=== PATIENT | female | born 1980 | race Caucasian/White ===

== ENCOUNTER → 2019-11-26 14:55 | Outpatient (CLI) | payer OTHER, SELFPAY ==
--- NOTE | ~2019-11-26 | MM_ITS ---
EXAMINATION: MM screening [facility] BI w den HISTORY: Screening mammogram TECHNIQUE: Craniocaudal and mediolateral oblique 3-D tomosynthesis images were obtained and synthetic 2-D images were generated. CAD analysis was submitted and interpreted. COMPARISON: 11/16/2011 diagnostic left digital mammogram and left breast ultrasound 02/01/2012 diagnostic left digital mammogram BREAST PARENCHYMAL COMPOSITION: The breasts are heterogeneously dense, which may obscure small masses . FINDINGS: There is a biopsy marker in the upper outer quadrant of the left breast; biopsy was reporte dly benign. There is no evidence of suspicious mass, calcification, or architectural distortion to gupta ggest malignancy in either breast. There has been no suspicious interval change. IMPRESSION: 1. No mammographic evidence of malignancy. 2. Recommend routine screening mammography in one year. BI-RADS Category 1: Negative Reviewed, dictated and finalized at location A.
== END ==
PROVIDERS: Visit Provider Nurse Practitioner
DX: Z12.31 Encounter for screening mammogram for malignant neoplasm of breast (principal)
CPT/HCPCS: 77063; 77067

== ENCOUNTER → 2021-01-28 10:08 | Outpatient (CLI) | payer OTHER, SELFPAY ==
--- NOTE | ~2021-01-28 | MM_ITS ---
EXAMINATION: MM screening rin BI w den HISTORY: Screening mammogram TECHNIQUE: Craniocaudal and mediolateral oblique 3-D tomosynthesis images were obtained and synthetic 2-D images were generated. CAD analysis was submitted and interpreted. COMPARISON: No prior mammogram is available for comparison at this institution. BREAST PARENCHYMAL COMPOSITION: FINDINGS: There is no evidence of suspicious mass, calcification, or architectural distortion to sugg est malignancy in either breast. There has been no suspicious interval change. IMPRESSION: 1. No mammographic evidence of malignancy. 2. Recommend routine screening mammography in one year. BI-RADS Category 1: Negative Reviewed, dictated and finalized at location A.
== END ==
PROVIDERS: Visit Provider Nurse Practitioner
DX: Z12.31 Encounter for screening mammogram for malignant neoplasm of breast (principal)
CPT/HCPCS: 77063; 77067

== ENCOUNTER 2021-03-23 08:03 | Emergency (ER) | payer OTHER, SELFPAY ==
[2021-03-23 08:10] VITALS: PULSE 104; RESP 14; TEMP 37.1; O2SAT 98
--- NOTE | 2021-03-23 08:23 | ED.EYEPROB ---
HPI - Eye Problem General Chief complaint: Eye Problems Stated complaint: Eye Swelling Time Seen by Provider: 03/23/21 08:05 Source: patient Mode of arrival: ambulatory Limitations: no limitations History of Present Illness HPI Narrative: 40-year-old female presents to [facility] with complaints of swelling to her bilateral upper eyelids, no drainage and matting to her eyes since yesterday. Patient denies new make-up, new soaps or new lotion. Patient denies shortness of breath, wheezing, trouble swallowing difficulty breathing. Patient does not wear contacts or glasses. Onset (ago): day(s) (1) Onset description: sudden Mechanism: none Associated symptoms: none Related Data Home Medications Medication Instructions Recorded Confirmed norethindrone-ethin estradiol 1 tablet PO DAILY 03/23/21 03/23/21 [Nortrel (28)] Allergies Allergy/AdvReac Type Severity Reaction Status Date / Time No Known Allergies Allergy Unknown Unverified 03/23/21 08:19 Review of Systems Constitutional: Constitutional: Denies chills, Denies fatigue, Denies fever(s) and Denies weakness Eyes: Comments: Swelling to eyelids, mild drainage, matting ENT: Denies dysphagia, Denies dizziness, Denies epistaxis and Denies sore throat Respiratory: Respiratory: Denies chest congestion, Denies cough, Denies dyspnea and Denies wheezing Gastrointestinal: Gastrointestinal: Denies abdominal pain, Denies diarrhea, Denies nausea and Denies vomiting Integumentary/Breasts: Skin/Breast: Denies rash Endocrine: Endocrine: Denies fatigue [facility] Surgical History Surgical History (Updated 03/23/21 @ 08:27 by Martha Blackman APRN) Hx of removal of ovary Family History Family History Grandparent Carcinoma of colon Family history of lung cancer Social History Social History Smoking status: Never smoker Alcohol intake: never Comments At time of signature, I agree with nursing past medical, surgical, social and family history. There is no relevant family history pertinent to the presenting complaint. Exam Const: General: healthy appearing, no acute distress and alert Orientation/consciousness: patient oriented x3 Eyes: Conjunctivae: conjunctivae normal Pupils: Equal, round and reactive pupils present Direct Ophthalmoscopy: no photophobia Other: swelling noted to bilateral upper eyelids -- left is worse than right. No active drainage or tearing noted. Neck: Neck: normal visual inspection Resp: Effort & Inspection: normal respiratory effort Auscultation: clear to auscultation bilaterally Cardio: Rate: regular rate, not bradycardic and not tachycardic Rhythm: regular rhythm Skin: General skin exam: normal color Rashes: no rashes Wounds: no wounds Neuro: General: patient oriented x3 and moves all extremities Psych: Appearance: grossly normal Mental Status: mental status grossly normal Affect: normal affect Attitude: cooperative Course Vital Signs Vital signs: Vital Signs Temperature 37.1 C 03/23/21 08:10 Pulse Rate 104 H 03/23/21 08:10 Respiratory Rate 14 03/23/21 08:10 Pulse Oximetry 98 03/23/21 08:10 Temperature 37.1 C 03/23/21 08:10 Pulse Rate 104 H 03/23/21 08:10 Respiratory Rate 14 03/23/21 08:10 Blood Pressure 156/98 H 03/23/21 08:26 Pulse Oximetry 98 03/23/21 08:10 MDM - Eye Problem MDM Narrative Medical decision making narrative: Inform patient to follow-up with primary care provider and have blood pressure reevaluated. Patient reports her blood pressure does run high at times. Informed patient take prednisone as prescribed and use ointment as prescribed. Patient agrees to follow-up with primary care provider or eye doctor if symptoms not improved. Patient agrees to proceed to emergency room if symptoms worsen Differential Diagnosis Differential diagnosis: Likely conjunct
[2021-03-23 08:26] VITALS: BP 156/98
== END 2021-03-23 08:35 | disposition home or self-care (01) ==
PROVIDERS: Emergency Provider Nurse Practitioner Family; PCP Hospitalist
DX: H02.844 Edema of left upper eyelid (principal); H02.841 Edema of right upper eyelid; I10 Essential (primary) hypertension
CPT/HCPCS: 99213; G0463

== ENCOUNTER 2021-05-22 01:52 | Emergency (ER) | payer OTHER, SELFPAY ==
--- NOTE | ~2021-05-22 | XR_ITS ---
EXAMINATION: XR chest 2V DATE: 05/22/2021 02:27 INDICATION: Chest pain TECHNIQUE: PA and lateral views of the chest are obtained. COMPARISON: None available FINDINGS: The lungs are free of acute opacities. There is no pleural effusion or pneumothorax. The ca rdiomediastinal silhouette is normal. The visualized bones and soft tissues are unremarkable. IMPRESSION: 1. No acute cardiopulmonary abnormality. Reviewed, dictated and finalized at location A. FOOD WORKER
--- NOTE | 2021-05-22 01:54 | ECG_ITS ---
Measurements Intervals [place] Rate: 63 P: 68 [place]: 207 QRS: 26 QRSD: 98 T: 22 QT: 413 QTc: 426 Interpretive Statements SINUS RHYTHM INCOMPLETE RIGHT BUNDLE BRANCH BLOCK BORDERLINE T WAVE ABNORMALITY- ANTERIOR LEADS BASELINE ARTIFACT- I, II, III, AVR, AVL, AVF, V1-V6 BORDERLINE ECG Electronically Signed On 05-22-2021 16:06:01 DATABASE REPORTING CONSULTANT by Anderson Do D.O.
[2021-05-22 01:56] VITALS: BP 195/125; PULSE 65; RESP 16; TEMP 36.7; O2SAT 100
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
[2021-05-22] MEDS: ASPIRIN 81 MG CHEWABLE TABLET 324 MG PO (02:10)
[2021-05-22] MEDS: NITROGLYCERIN SL 0.4 MG TABLET SUBLINGUAL (02:16)
[2021-05-22 02:21] LABS: Basophils Absolute Auto 0.1 K/mm3 (0.0-0.1); Basophils Percent Auto 1.4 % (0.2-1.2); Eosinophils Absolute Auto 0.4 K/mm3 (0-0.3); Eosinophils Percent Auto 6.8 % (0-4.4); Hematocrit 38.9 % (37.0-47.0); Hemoglobin 13.1 g/dL (12.0-15.0); Immature Granulocyte Absolute 0.01 K/mm3 (0.00-0.031); Immature Granulocyte Percent A 0.2 % (0-0.5); Lymphocytes Absolute Auto 3.29 K/mm3 (0.9-3.2); Lymphocytes Percent Auto 50.9 % (18.3-44.2); Mean Corpuscular HGB Conc 33.7 g/dl (32-36); Mean Corpuscular Hemoglobin 29.8 pg (26-34); Mean Corpuscular Volume 88.6 fl (80-100); Monocytes Absolute Auto 0.5 K/mm3 (0.1-0.6); Monocytes Percent Auto 7.3 % (2.6-8.5); Neutrophils Absolute Auto 2.2 K/mm3 (1.3-6.7); Neutrophils Percent Auto 33.4 % (45.5-73.1); Platelet Count Result 309 k/mm3 (150-375); Red Blood Count 4.39 M/mm3 (4.2-5.4); White Blood Count 6.5 K/mm3 (4.5-10.0)
--- NOTE | 2021-05-22 02:33 | PC.NURSE ---
pt given first nitro tab 0215 pt still reports pain, second tab given 219. pt denies pain no further nitro tab given. 0.8 mg given total
[2021-05-22 02:34] VITALS: BP 128/91; PULSE 73; RESP 19; O2SAT 98
[2021-05-22 02:34] LABS: Alanine Aminotransferase 26 U/L (4-35); Albumin Level 4.6 g/dL (3.5-5.1); Alkaline Phosphatase 77 U/L (38-126); Anion Gap 8 mmol/L (8-16); Aspartate Amino Transferase 29 U/L (14-36); Bilirubin,Total 0.6 mg/dL (0.2-1.3); Blood Urea Nitrogen 25 mg/dL (7-17); Calcium 9.6 mg/dL (8.4-10.2); Carbon Dioxide 28 mmol/L (22-30); Chloride 101 mmol/L (98-107); Estimated CRCL calculation 60 ml/min; Estimated Glomerular Filt Rate > 60; Glucose 106 mg/dL (65-110); Lipase 147 U/L (23-300); Sodium 137 mmol/L (137-145)
[2021-05-22 02:37] LABS: Partial Thromboplastin Time 31.4 SECONDS (22.3-36.8)
[2021-05-22 02:46] LABS: Troponin I < 0.012 ng/mL (0.000-0.034)
[2021-05-22 03:48] VITALS: BP 132/89; PULSE 63; RESP 16; O2SAT 98
[2021-05-22 04:29] VITALS: BP 124/84; PULSE 60; RESP 17; O2SAT 98
[2021-05-22 05:25] LABS: Troponin I < 0.012 ng/mL (0.000-0.034)
[2021-05-22 05:50] VITALS: BP 125/85; PULSE 67; RESP 18; O2SAT 99
== END 2021-05-22 06:16 | disposition home or self-care (01) ==
PROVIDERS: Emergency Provider Emergency Medicine; PCP Hospitalist
DX: R07.9 Chest pain, unspecified (principal); I10 Essential (primary) hypertension; I45.10 Unspecified right bundle-branch block; R94.31 Abnormal electrocardiogram [ECG] [EKG]
CPT/HCPCS: 36415; 71046; 80053; 83690; 84484; 85025; 85610; 85730; 93005; 99284; A9270

== ENCOUNTER 2021-06-09 08:03 | Emergency (ER) | payer OTHER, SELFPAY ==
[2021-06-09 08:09] VITALS: BP 141/93; PULSE 66; RESP 16; TEMP 37.2; O2SAT 99
--- NOTE | 2021-06-09 08:12 | ED.NAVMDI ---
HPI - Nausea/Vomiting/Diarrhea General Chief complaint: Nausea/Vomiting/Diarrhea Stated complaint: Diarrhea Time Seen by Provider: 06/09/21 08:38 Source: patient and RN notes reviewed Mode of arrival: ambulatory Limitations: no limitations History of Present Illness HPI Narrative: 40-year-old female presents with concern for diarrhea and abdominal bloating. She reports on Monday she began having nausea and vomiting. Reports she vomited several times Monday and Monday morning. She reports vomiting stopped and she continued to feel nauseated and have a decreased appetite. She denies abdominal pain, fever, body aches, chills, sweats. She reports Monday night she began having diarrhea. She reports on Monday she had approximately 7 8 episodes of diarrhea, today she has had 3-4. She reports yesterday she began having abdominal bloating. She reports history of ovarian cyst with right oophorectomy. She reports she recently went off control and has since had problematic symptoms and irregular periods. Reports she is urinating a normal amount at least once every 6 hours. MD elicited complaint: diarrhea Related Data Home Medications Medication Instructions Recorded Confirmed propranolol 30 mg PO BID 05/22/21 Allergies Allergy/AdvReac Type Severity Reaction Status Date / Time No Known Allergies Allergy Unknown Verified 06/09/21 08:31 Review of Systems Review of Systems: CONSTITUTIONAL: Denies malaise, chills, sweats, or fever. ENT: Denies rhinorrhea, congestion, sinus pain, otalgia or sore throat. CARDIOVASCULAR: Denies chest pain, palpitations, or edema. RESPIRATORY: Denies cough or dyspnea. GASTROINTESTINAL: Denies abdominal pain. Reports episodes of nausea, vomiting 3 to 4 days ago. Reports frequent diarrhea and abdominal bloating GENITOURINARY: Denies frequency, urgency, dysuria or hematuria. Denies abnormal vaginal bleeding MUSCULOSKELETAL: Denies myalgia. NEUROLOGIC: Denies headache. All systems reviewed & are unremarkable except as noted in HPI and below PMFSH Past Medical History Medical History (Updated 06/09/21 @ 08:45 by Mallika Rodriguez NP) Hypertension Surgical History Surgical History (Updated 03/23/21 @ 08:27 by Martha Blackman APRN) Hx of removal of ovary Family History Family History Grandparent Carcinoma of colon Family history of lung cancer Social History Social History Smoking status: Never smoker Alcohol intake: never Comments At time of signature, agree with nursing past medical, surgical, social and family history. There is no relevant family history pertinent to the presenting complaint Exam Narrative: GENERAL: Well-appearing, well-nourished, and in no acute distress. HEAD: Normocephalic, atraumatic. EYES: PERRLA, conjunctivae clear, and EOMI. ENT: Nares clear, turbinates pink, no rhinorrhea or epistaxis. Mucous membranes moist. Oropharynx without edema, erythema, or lesions. Tonsils not enlarged and without exudate. NECK: Supple. No lymphadenopathy CHEST: Speaks in full sentences. No respiratory distress. HEART: Regular rate and rhythm. ABDOMEN: Soft, nondistended. No guarding, rebound tenderness, or rigid. No pulsatilla masses. Bowel sounds present in all four quadrants. No organomegaly. Negative Reaves?s sign. No periumbilical tenderness. No Supra public tenderness or distension. No hernia noted. No scars or surface trauma. SKIN: Warm, dry, no rash. NEURO: Alert and oriented x3. PSYCH: Normal mood and affect Course Course Emergency Course: Patient is aware of diagnosis, understands and agrees to treatment plan. Anticipatory guidance given. Patient agrees to follow-up as directed and is aware of reasons to seek care at the emergency department. Portions of this record may have been created with voice recognition software Level of Care: [facility]
== END 2021-06-09 08:56 | disposition home or self-care (01) ==
PROVIDERS: Emergency Provider Nurse Practitioner; PCP Hospitalist
DX: R14.0 Abdominal distension (gaseous) (principal); R19.7 Diarrhea, unspecified; I10 Essential (primary) hypertension
CPT/HCPCS: 99213; G0463

== ENCOUNTER → 2021-06-14 13:16 | Outpatient (CLI) | payer OTHER, SELFPAY ==
--- NOTE | ~2021-06-14 | US_ITS ---
EXAMINATION: US pelvic complete EXAM DATE: 06/14/2021 13:33 INDICATION: N91.2, Bloating, right adnexal fullness . TECHNIQUE: Pelvic transabdominal sonogram was performed. There are multiple grayscale and Doppler im ages available for interpretation. Comparison is made to prior examination from 04/24/2019. FINDINGS: Uterus measures 7.9 x 2.9 x 4.1 cm, and is morphologically normal. Endometrial stripe mirtha sures 6 mm, within normal limits. There is no free pelvic fluid. Right adnexa: The ovary is not identified. There is no adnexal mass. Left adnexa: The ovary measures 2.5 x 1.5 x 2.2 cm and is morphologically normal. Ovarian vascular fl ow confirmed. IMPRESSION: 1. Unremarkable pelvic ultrasound exam. Reviewed, dictated and finalized at location A. LE MECHANIC
== END ==
PROVIDERS: PCP Hospitalist; Visit Provider Nurse Practitioner
DX: N91.2 Amenorrhea, unspecified (principal)
CPT/HCPCS: 76856

== ENCOUNTER → 2022-03-09 13:02 | Outpatient (CLI) | payer OTHER, SELFPAY ==
--- NOTE | ~2022-03-09 | MM_ITS ---
EXAMINATION: MM screening rin BI w den HISTORY: Screening mammogram TECHNIQUE: Craniocaudal and mediolateral oblique 3-D tomosynthesis images were obtained and synthetic 2-D images were generated. CAD analysis was submitted and interpreted. COMPARISON: 01/28/2021, 11/26/2019 bilateral screening mammogram examinations BREAST PARENCHYMAL COMPOSITION: The breasts are heterogeneously dense, which may obscure small masses . FINDINGS: Right breast: Subtle cluster of grouped microcalcifications is noted in the very posterior aspect of the mid right breast on MLO view. Diagnostic right mammogram with magnification views is recommended. : Left breast: There is a biopsy marker on the left; history of prior benign left breast biopsy in 2011 . There are 2 approximately 3 mm and 3.5 mm circumscribed opacities in the posterior upper outer and mi d outer left breast Diagnostic left mammogram and left breast ultrasound examination are recommended.. IMPRESSION: 1. Subtle cluster of grouped microcalcifications in the very posterior mid right breast on MLO view; diagnostic right mammogram with magnification views is recommended 2. 2 approximately 3 and 3.5 mm circumscribed opacities in posterior mid and upper outer left breast; diagnostic left mammogram and left breast ultrasound examination are recommended. BI-RADS Category 0: Incomplete: Needs additional imaging evaluation. Reviewed, dictated and finalized at location A. ER IMPRESSION: 1. Subtle cluster of grouped microcalcifications in the very posterior mid righ t breast on MLO view; diagnostic right mammogram with magnification views is re commended 2. 2 approximately 3 and 3.5 mm circumscribed opacities in posterior mid and up per outer left breast; diagnostic left mammogram and left breast ultrasound exa mination are recommended. BI-RADS Category 0: Incomplete: Needs additional imaging evaluation.
== END ==
PROVIDERS: PCP Hospitalist; Visit Provider Obstetrics & Gynecology Gynecology
DX: Z12.31 Encounter for screening mammogram for malignant neoplasm of breast (principal); R92.8 Other abnormal and inconclusive findings on diagnostic imaging of breast
CPT/HCPCS: 77063; 77067

== ENCOUNTER → 2022-04-01 08:07 | Outpatient (CLI) | payer OTHER, SELFPAY ==
--- NOTE | ~2022-04-01 | MMUS_ITS ---
EXAMINATION: MM diagnostic rin BI w den, US breast LT complete HISTORY: Follow-up right breast calcifications and left breast asymmetries TECHNIQUE: Additional 3-D tomosynthesis images of the breasts were performed and synthetic 2-D images were generated. CAD analysis was submitted and interpreted. High resolution complete left breast ult rasound was performed. COMPARISON: Comparison to multiple prior studies sequentially, with oldest reviewed study dated 03/11. BREAST PARENCHYMAL COMPOSITION: Breast composed of scattered areas of fibroglandular density FINDINGS: MAMMOGRAPHIC FINDINGS: There is a cluster of calcifications in the central posterior aspect of the right breast on MLO view which are likely benign. No discrete mass is identified in the left breast. No suspicious architectur al distortion or calcifications are seen in the left breast. ULTRASOUND: Complete left breast US of all 4 quadrants and retroareolar region was reviewed. At 12:00, 5 cm from the nipple there is an oval hypoechoic 6 mm mass, likely benign. No other discrete masses are identif ied. IMPRESSION: 1. Probable benign findings of both breasts. 2. Recommend 6 month follow-up diagnostic bilateral mammogram and Limited left breast ultrasound BI-RADS category 3, probably benign findings. 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 Probable benign findings of both breasts. 2. Recommend 6 month follow-up diagnostic bilateral mammogram and Limited left breast ultrasound BI-RADS category 3, probably benign findings.
== END ==
PROVIDERS: PCP Hospitalist; Visit Provider Obstetrics & Gynecology Gynecology
DX: R92.8 Other abnormal and inconclusive findings on diagnostic imaging of breast (principal)
CPT/HCPCS: 76641; 77062; 77066; G0279

== ENCOUNTER → 2022-09-12 08:20 | Outpatient (CLI) | payer OTHER, SELFPAY ==
--- NOTE | ~2022-09-12 | MMUS_ITS ---
EXAMINATION: MM diagnostic rni BI w den, US breast LT limited HISTORY: Follow-up probable benign findings on prior examination. TECHNIQUE: Additional 3-D tomosynthesis images of the breasts were performed and synthetic 2-D images were generated. CAD analysis was submitted and interpreted. High resolution Limited left breast ultr asound was performed. COMPARISON: Comparison to multiple prior studies sequentially, with oldest reviewed study dated 11/05. BREAST PARENCHYMAL COMPOSITION: The breasts are heterogeneously dense, which may obscure small masses FINDINGS: MAMMOGRAPHIC FINDINGS: The breasts are stable. No new masses, calcifications or architectural distortion in either breast to suggest malignancy. ULTRASOUND: Limited left breast ultrasound: At 12:00, 5 cm from the nipple, there is an oval hypoechoic mass with enhanced through transmission measuring 4 mm, unchanged from prior examination allowing for techniqu e. IMPRESSION: 1. Stable likely benign left breast mass at 12:00, 5 cm from the nipple. 2. Recommend 6 month follow-up Limited left breast ultrasound BI-RADS category 3, probably benign findings. Reviewed, dictated and finalized at location A. IMPRESSION: 1. Stable likely benign left breast mass at 12:00, 5 cm from the nipple. 2. Recommend 6 month follow-up Limited left breast ultrasound BI-RADS category 3, probably benign findings.
== END ==
PROVIDERS: PCP Hospitalist; Visit Provider Obstetrics & Gynecology Gynecology
DX: R92.8 Other abnormal and inconclusive findings on diagnostic imaging of breast (principal); N63.0 Unspecified lump in unspecified breast
CPT/HCPCS: 76642; 77062; 77066; G0279

== ENCOUNTER 2022-09-22 08:12 | Emergency (ER) | payer OTHER, SELFPAY ==
[2022-09-22 08:20] VITALS: BP 112/78; PULSE 84; RESP 16; TEMP 36.9; O2SAT 99
--- NOTE | 2022-09-22 08:28 | ED.URI ---
HPI - URI/Sore Throat General Chief Complaint: Upper Respiratory Infection Stated Complaint: Sore Throat Time Seen by Provider: 09/22/22 08:29 Source: patient, RN notes reviewed and old records reviewed Mode of arrival: ambulatory Limitations: no limitations History of Present Illness HPI Narrative: 42-year-old female presents to the [facility] with complaints of a sore throat. Symptoms started on Monday. Was recently in [place], recently flew home. Related Data Home Medications Medication Instructions Recorded Confirmed propranolol 60 mg tablet 30 mg PO BID 05/22/21 drospirenone (contraceptive) 4 mg 09/22/22 (28) tablet (Slynd) lisinopril 20 mg tablet mg 09/22/22 09/22/22 Allergies Allergy/AdvReac Type Severity Reaction Status Date / Time No Known Allergies Allergy Unknown Verified 06/09/21 08:31 Review of Systems Review of Systems: All systems reviewed & are unremarkable except as noted in HPI and below Constitutional: Constitutional: Reports no additional constitutional complaints Eyes: Eyes: Reports no additional eye complaints ENT: Reports as per HPI Cardiovascular: Cardiovascular: Reports no additional cardiovascular complaints, Denies chest pain and Denies dyspnea Respiratory: Respiratory: Reports no additional respiratory complaints, Denies chest congestion, Denies cough and Denies dyspnea Gastrointestinal: Gastrointestinal: Reports no additional gastrointestinal complaints, Denies abdominal pain, Denies nausea and Denies vomiting Musculoskeletal: Musculoskeletal: Reports no additional musculoskeletal complaints Integumentary/Breasts: Skin/Breast: Reports system reviewed and no additional complaints, except as docu Neurologic: Reports system reviewed and no additional complaints, except as documented Psychiatric: Psychiatric: Reports no additional psychiatric complaints Allergic/Immunologic: Allergic/Immunologic: Reports no additional allergic/immunologic complaints [facility] Past Medical History Medical History Hypertension Surgical History Surgical History Hx of removal of ovary Family History Family History Grandparent Carcinoma of colon Family history of lung cancer Social History Social History Smoking status: Never smoker Alcohol intake: never Comments At the time of my signature, I reviewed and agree with the nursing past medical, surgical, social, and family history. There is no relevant family history pertinent to the patient complaint. Exam Const: General: cooperative, comfortable, no acute distress, well developed, alert, ill appearing (mild) acutely and well nourished Nutritional Appearance: well nourished Orientation/consciousness: patient oriented x3 Limitations: no limitations HENMT: Head: normal to inspection Ears: hearing grossly normal bilaterally, external ears normal, TM's normal bilaterally and EAC's normal Face/Nose/Sinus: Normal external nose present, Normal nares present, Normal nasal mucous membranes and turbinates present and normal facial exam Face and sinus: normal facial exam Mouth: Yes Normal oral and palatal mucosa present, Yes lip normal and Yes moist mucous membranes Throat: posterior oropharynx normal, uvula midline and postnasal drainage Eyes: General: appearance normal, both eyes and all related structures Alignment and Position: alignment normal Periorbital: periorbital findings normal Pupils: Equal, round and reactive pupils present EOM: EOMs intact bilaterally Neck: Neck: normal visual inspection, full ROM, no lymphadenopathy and no meningeal signs Chest: Chest palpation & inspection: normal inspection of the chest Resp: Effort & Inspection: normal respiratory effort and able to speak in complete sentences [place]
== END 2022-09-22 08:47 | disposition home or self-care (01) ==
PROVIDERS: Emergency Provider Nurse Practitioner; PCP Hospitalist
DX: J10.1 Influenza due to other identified influenza virus with other respiratory manifestations (principal); Z20.822 Contact with and (suspected) exposure to COVID-19; I10 Essential (primary) hypertension
CPT/HCPCS: 87081; 87426; 87804; 87880; 99213; C9803; G0463

== ENCOUNTER 2024-01-29 14:17 | Outpatient (CLI) | payer OTHER, SELFPAY ==
--- NOTE | ~2024-01-29 | US_ITS ---
EXAMINATION: US pelvic complete INDICATION: Left lower quadrant pain Comparison:06/14/2021 TECHNIQUE: Multiple transabdominal and endovaginal sonographic images of the pelvis performed. FINDINGS: The uterus measures 7.6 x 4.2 x 5.7 cm. The endometrial complex measures 4 mm. The right ovary is nonvisualized. The left ovary measures 2.5 x 1.4 x 2.3 cm without significant gio d or cystic mass. Normal Doppler signal in the left ovary. There is no free fluid in the pelvis. There are no abnormal masses seen on either side. IMPRESSION: 1. Unremarkable pelvic ultrasound. Reviewed, dictated and finalized at location B.
== END 2024-01-29 14:18 | disposition home or self-care (01) ==
LOC: MICIMG 14:18
PROVIDERS: PCP Hospitalist; Visit Provider Nurse Practitioner
DX: R10.2 Pelvic and perineal pain (principal)
CPT/HCPCS: 76856

== ENCOUNTER 2024-05-29 08:16 | Emergency (ER) | payer OTHER, SELFPAY ==
[2024-05-29 08:20] VITALS: BP 145/96; PULSE 80; RESP 16; TEMP 36.9; O2SAT 100
--- NOTE | 2024-05-29 08:20 | ED_ITS ---
HPI - URI/Sore Throat General Chief Complaint: Upper Respiratory Infection Stated Complaint: left side of jaw swollen/headache Related Data Home Medications ?Medication ?Instructions ?Recorded ?Confirmed ?Last Taken ?Type propranolol 60 mg tablet 30 mg PO BID 05/22/21 Unknown History drospirenone (contraceptive) 4 mg 09/22/22 Unknown History (28) tablet (Slynd) lisinopril 20 mg tablet mg 09/22/22 09/22/22 Unknown History Allergies Allergy/AdvReac Type Severity Reaction Status Date / Time No Known Allergies Allergy Unknown Verified 06/09/21 08:31 [facility] Past Medical History Medical History Hypertension Surgical History Surgical History Hx of removal of ovary Family History Family History Grandparent Carcinoma of colon Family history of lung cancer Social History Social History Smoking status: Never smoker Alcohol intake: never Discharge Plan Discharge Patient Language: Canadian Prescriptions: No Action lisinopril 20 mg tablet Slynd 4 mg (28) tablet oseltamivir [Tamiflu] 75 mg capsule 75 mg PO Q12H 5 Days Qty: 10 0RF propranolol 60 mg tablet 30 mg PO BID nitroglycerin 0.3 mg tablet, sublingual 0.3 mg sublingual Q5-15M PRN (Reason: chest pain) Qty: 10 0RF Rx Instructions: do not exceed 3 doses per episode Follow-up/Referrals: Ronnie,MD Bryce [Primary Care Provider] -
--- OUTSIDE RECORDS SUMMARY | 2024-05-29 08:21 | XMS_ITS | Referral Summary ---
Author Organization [address] Address [address] [facility] [address] [place] [address] Care Team Providers Care Manager Story Name Role Phone Bryce Trujillo MD Primary Care Provider [phone] Dora Agarwal MD Unavailable [phone] Encounters Date Type Department Care Team Description 04/30/2024 Orders Only [facility] [address] [id number] Bryce Trujillo MD 03/01/2024 7:44 AM SOFT METALS HAND ENGRAVER - 03/01/2024 11:59 PM SOFT METALS HAND ENGRAVER Hospital Encounter [facility] [address] [place] [id number] Abdominal pain Discharge Disposition: Discharge to home or self care from Last 3 Months Allergies No known active allergies Medications Lessina 0.1-20 mg-mcg per tablet Take 1 tablet by mouth daily 4 Active simethicone (MYLICON) 125 mg chewable tablet Take 1 tablet (125 mg total) by mouth every 6 (six) hours as needed for flatulence 30 tablet 2 4 Active lisinopriL (PRINIVIL,ZESTRI L) 20 mg tabletIndication s:Primary hypertension Take 1 tablet (20 mg total) by mouth daily 90 tablet 5 04/18/19 26 Active testosterone 12.5 mg/ 1.25 gram (1 %) gel in metered-dose pumpIndications: Androgen Deficiency Place 12.5 mg on the skin daily 150 g 2 4 05/16/19 25 Active Problems Problem Noted Date Diagnosed Date Abdominal pain 02/07/2024 Assessment & Plan (02/07/2024 8:48 AM CDT): Episode of abdominal pain 2 weeks ago follow by persistent bloating since. Has previously been worked up for similar symptoms with no clear cause identified. Colonoscopy done in 2021 reviewed and was normal. Differentials include constipation, calcium derangement, IBS, celiac disease, UTI. Will initially work up with lab work and consider imaging depending on the results. Oral contraceptive use 10/23/2023 Pain involving joint of finger of left hand 06/2023 Assessment & Plan (10/11/2023 10:07 AM CDT): Obtain xray; will follow with results Motrin 800 mg TID PRN BI-RADS category 3 mammogram result 12/01/2022 Family history of colon cancer 07/19/2021 Primary hypertension 03/26/2021 Assessment & Plan (10/23/2023 8:25 AM CDT): Chronic, stable, well controlled BP at goal at visit; 106/70 Decrease Lisinopril 20 mg daily Assessment & Plan (11/16/2022 9:08 AM CDT): Stable, well-controlled blood pressure at target Continue lisinopril 20 mg daily decrease propranolol to 40 mg daily times 14 days then stop Return in 1 month Assessment & Plan (10/21/2022 9:50 AM CDT): Stable, well-controlled, blood pressure at target Continue lisinopril 20 mg daily Decrease propranolol to 40 mg daily, return in 1 month One-month follow-up will discuss decreasing propranolol to 20 mg daily Assessment & Plan (01/13/2022 9:07 AM CDT): Stable, well controlled; blood pressure at target, no lightheadedness the patient reports some vertigo; no chest pain or headaches Continue lisinopril 20 mg b.i.d., atenolol 60 mg b.i.d. Assessment & Plan (07/19/2021 1:35 PM CDT): Not well controlled; patient had limited response to previous medications; was elevated emergency department patient also had concurrent chest pain has history of preeclampsia and gestational hypertension Patient reports that OCPs Add lisinopril 20 mg daily Assessment & Plan (04/16/2021 10:54 AM SOFT METALS HAND ENGRAVER): Stable, blood pressure remains elevate well medication Increase propranolol to 40 mg b.i.d.; continue to adjust as necessary If no improvement, consider adding 2nd medication to target her mechanism of action Get routine blood work today to evaluate kidney function to rule out renal cause of elevated blood pressure patient reports some episodes of chest pain, mostly at rest; low concern for cardiac source given patient exercises and has no symptoms; may be anxiety related Assessment & Plan (03/26/2021 1:28 PM SOFT METALS HAND ENGRAVER): Stable, patient has had elevated blood pressure over last couple weeks; general patient reports that she has healthy diet, regular exercise; has recently discontinued oral contraceptives Patient has history of preeclampsia in previous pregnancies Will continue to monitor; discontinue oral contraceptive Patient to continue to check blood pressures at home; if elevated greater than 150/90, would recommend starting medications Follow-up in 3 months to re-evaluate blood pressure and discuss if medications are required Resolved Problems Problem Noted Date Diagnosed Date Resolved Date Bloating 07/19/2021 10/21/2022 Change in bowel habits 07/19/202110/21 Immunizations Immunization Administration Dates Next Due Influenza, Unspecified 02/09/2023(Deferr ed: Patient Refused),02/09/2023(Deferred: Patient Refused),10/21/2022(Deferred: Patient Refused),01/08/2022(Deferred: Patient Refused),01/08/2022(Deferred: Patient Refused),06/28/2021(Deferred: Patient Refused),06/28/2021(Deferred: Patient Refused),05/31/2021(Deferred: Patient Refused),03/26/2021(Deferred: Patient Refused),04/10/2020(Deferred: Patient Refused),04/10/2020(Deferred: Patient Refused),04/10/2020(Deferred: Patient Refused),04/10/2020(Deferred: Patient Refused),04/10/2020(Deferred: Patient Refused),04/10/2019(Deferred: Patient Refused) Tdap 07/14/2020 Social History Tobacco Use Types Packs/Day Years Used Date Smoking Tobacco: Never Smokeless Tobacco: Never Tobacco Cessation:Counseling Given: Not Answered [facility] Matter.ioities Answer Date Recorded In the past 12 months has [facility] [employer], gas, oil, or water [employer] threatened to shut off services in your home? No 10/23/2023 Humiliation, Afraid, Rape, and Kick questionnair e Answer Date Recorded Within the last year, have y ou been afraid of your partner or ex-partner? No 10/23/2023 Within the last year, have y ou been humiliated or emotionally abused in other ways by your partner or ex-partner? No Within the last year, have y ou been kicked, hit, slapped, or otherwise physically hurt by your partner or ex-partner? No 10/23/2023 Within the last year, have y ou been raped or forced to have any kind of sexual activity by your partner or ex-partner? No 10/23/2023 Social Connection and Isolat ion Panel [NHANES] Answer Date Recorded In a typical week, how many times do you talk on the phone with family, friends, or neighbors? More than three times a week 10/23/2023 How often do you get togethe r with friends or relatives? More than three times a week 10/23/2023 How often do you attend chur ch or druze services? More than 4 times per year 10/23/2023 Do you belong to any clubs o r organizations such as catholic groups, unions, fraternal or athletic groups, or school groups? Yes 10/23/2023 How often do you attend meet ings of the clubs or organizations you belong to? More than 4 times per year 10/23/2023 Are you , , di vorced, , never , or living with a partner? 10/23/2023 AUDIT-C Answer Date Recorded Q1: How often do you have a drink containing alc ohol? 2-4 times a month 10/23/2023 Q2: How many drinks containi ng alcohol do you have on a typical day when you are drinking? 1 or 2 10/23/2023 Q3: How often do you have si x or more drinks on one occasion? Never 10/23/2023 Overall Financial Resource Strain (CARDIA) Answe r Date Recorded How hard is it for you to pa y for the very basics like food, housing, medical care, and heating? Not hard at all 10/23/2023 PHQ-2 Answer Date Recorded PHQ-2 Total Score (If total score is 3 or more points, staff should administer the PHQ-9) 0 10/23/2023 [facility] - Occupational Stress Questionnaire Answer Date Recorded Do you feel stress - tense, restless, nervous, or anxious, or unable to sleep at night because your mind is troubled all the time - these days? Only a little 10/23/2023 Exercise Vital Sign Answer Date Recorde d On average, how many days pe r week do you engage in moderate to strenuous exercise (like a brisk walk)? 7 days 10/23/2023 On average, how many minutes do you engage in exercise at this level? 60 min 10/23/2023 Hunger Vital Sign Answer Date Recorded Within the past 12 months, y ou worried that your food would run out before you got the money to buy more. Never true 10/23/19 24 Within the past 12 months, t he food you bought just didn't last and you didn't have money to get more. Never true 10/23/2023 PRAPARE - Transportation Answer Date Re corded In the past 12 months, has l ack of transportation kept you from medical appointments or from getting medications? No 10/08 In the past 12 months, has l ack of transportation kept you from meetings, work, or from getting things needed for daily living? No 10/23/2023 Housing Stability Vital Sign Answer Deng e Recorded In the last 12 months, was t here a time when you were not able to pay the mortgage or rent on time? No 10/23/2023 In the past 12 months, how m any times have you moved where you were living? 0 10/23/2023 At any time in the past 12 m [facility], were you homeless or living in a intermediate (including now)? 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 Not on file Not on file Not on f ile Last Filed Vital Signs Vital Sign Reading Time Taken Comments Blood Pressure 104/70 02/07/2024 8:11 AM CDT Pulse 82 02/07/2024 8:11 AM CDT Temperature 36.2 C (97.2 F) 02/07/2024 8:11 AM CDT Respiratory Rate 16 02/07/2024 8:11 AM CDT Oxygen Saturation 98% 02/07/2024 8:11 AM CDT Inhaled Oxygen Concentration - - Weight 63.8 kg (140 lb 10.5 oz) 02/07/2024 8:11 AM CDT Height 162.6 cm (5' 4 ) 02/07/2024 8:11 AM CDT Body Mass Index 24.14 02/07/2024 8:11 AM CDT Plan of Treatment Not on file Procedures Procedure Name Priority Date/Time Associated Diagnosis Comments SCAN - PATHOLOGY 04/30/2024 US ABDOMEN COMPLETE Schedule Routine, Read Routine (OP Routine) 03/01/2024 8:39 AM SOFT METALS HAND ENGRAVER Abdominal pain HEPATITIS C ANTIBODY Routine 02/07/2024 8:52 AM CDT Encounter for hepatitis C screening test for low risk patient SCREENING MAMMOGRAM BILATERAL W NEGRO Schedule Routine, Read Routine (OP Routine) 12/04/2023 10:47 AM CDT BI-RADS category 3 mammogram result from Last 3 Months or Most Recently Relevant to Health Maintenance Results * SCAN - PATHOLOGY (04/30/2024) us Bryce Trujillo MD Final Res ult * US Abdomen Complete (03/01/2024 8:39 AM SOFT METALS HAND ENGRAVER) Anatomical Region Laterality Modality Abdomen N/A Ultrasound 03/05/2024 10:4 6 PM SOFT METALS HAND ENGRAVER Narrative 03/05/2024 10:47 PM SOFT METALS HAND ENGRAVER EXAM DESCRIPTION: US ABDOMEN COMPLETE REASON FOR STUDY: Abdominal pain and bloating for 6 weeks. TECHNIQUE: Grayscale images acquired of the abdomen and recorded on PACS. Additional selected color Doppler and spectral images recorded. COMPARISON: None FINDINGS: PANCREAS: Visualized portions of the pancreas are within normal limits. Portions of the pancreatic body and tail are obscured due to bowel gas. LIVER: No masses. Echotexture and echogenicity normal. Main portal vein is patent with antegrade flow. GALLBLADDER: The gallbladder appears unremarkable. No cholelithiasis. No gallbladder wall thickening or pericholecystic fluid. No positive sonographic [place] sign reported. BILIARY: There is no intrahepatic or extrahepatic biliary ductal dilatation. Common bile duct measures 4 mm . INFERIOR VENA CAVA: Normal flow. AORTA: No aneurysm. RIGHT KIDNEY: Normal size. Normal echogenicity. No solid mass or cyst. No hydronephrosis. Measures 10.2 cm in length. LEFT KIDNEY: Normal size. Normal echogenicity. No solid mass or cyst. No hydronephrosis. Measures 11.2 cm in length. SPLEEN: Normal size. No solid masses. PERITONEAL AND PLEURAL SPACES: No ascites or effusions. OTHER: No other significant finding. IMPRESSION: No acute abnormality. THIS IS AN ELECTRONICALLY VERIFIED FINAL REPORT 03/05/2024 10:47 PM - Electronically signed by Jeffrey Miranda M.D. KT: DONIS Report ID: [id number] Reading Location: [id number] Procedure Note Jeffrey Miranda MD - 03/05/2024 EXAM DESCRIPTION: US ABDOMEN COMPLETE REASON FOR STUDY: Abdominal pain and bloating for 6 weeks. TECHNIQUE: Grayscale images acquired of the abdomen and recorded on PACS. Additional selected color Doppler and spectral images recorded. COMPARISON: None FINDINGS: PANCREAS: Visualized portions of the pancreas are within normal limits. Portions of the pancreatic body and tail are obscured due to bowel gas. LIVER: No masses. Echotexture and echogenicity normal. Main portal veinis patent with antegrade flow. GALLBLADDER: The gallbladder appears unremarkable. No cholelithiasis.No gallbladder wall thickening or pericholecystic fluid. No positivesonographic [place] sign reported. BILIARY: There is no intrahepatic or extrahepatic biliary ductaldilatation. Common bile duct measures 4 mm . INFERIOR VENA CAVA: Normal flow. AORTA: No aneurysm. RIGHT KIDNEY: Normal size. Normal echogenicity. No solid mass or cyst.No hydronephrosis. Measures 10.2 cm in length. LEFT KIDNEY: Normal size. Normal echogenicity. No solid mass or cyst. No hydronephrosis. Measures 11.2 cm in length. SPLEEN: Normal size. No solid masses. PERITONEAL AND PLEURAL SPACES: No ascites or effusions. OTHER: No other significant finding. IMPRESSION: No acute abnormality. THIS IS AN ELECTRONICALLY VERIFIED FINAL REPORT 03/05/2024 10:47 PM - Electronically signed by Jeffrey Miranda M.D. KT: DONIS Report ID: [id number] Reading Location: [place] [address] Bryce Trujillo MD [facility] US PROCEDURES Final R esult * Hepatitis C antibody Blood (02/07/2024 8:52 AM CDT) Hep C Ab Nonreactive Nonreactive Comment: Interpretive Data Nonreactive: Antibodies to HCV not detected. Does NOT exclude the possibility of recent exposure to HCV. Equivocal: Equivocal for HCV antibodies. Supplemental molecular testing will be automatically performed to determine infection status in accordance with current CDC screening recommendations. Reactive: Positive for HCV antibodies. This may represent current or past HCV infection. Supplemental molecular testing will be automatically performed to determine current infection status in accordance with current CDC screening recommendations. Interpretive data was last revised on 2019. Testing performed by: [facility], [address] [place] [address], [place]., [address] Blood 02/07/2024 8:52 AM CDT 02/07/2024 3:33 PM CDT us Bryce Trujillo MD LAB MICROBIOLOGY - GENERA L ORDERABLES Final Result MEERA SHERMAN (OTO) [facility] [place] [address] * Screening Mammogram Bilateral W Negro (12/04/2023 10:47 AM CDT) Anatomical Region Laterality Modality Breast Bilateral Mammography Narrative 12/04/2023 3:30 PM CDT Mammogram Technique: Bilateral Digital Breast Tomosynthesis, Bilateral C-view 2D Screening mammogram. Views obtained: bilateral craniocaudal and bilateral mediolateral oblique. Computer Aided Detection was performed. Mammogram Findings: The present examination has been compared to a prior imaging study performed at [facility] on 12/01/2022. There are scattered areas of fibroglandular density. There is no suspicious abnormality in either breast. Impression: There is no mammographic evidence of malignancy. Annual screening mammography is recommended. OVERALL FINAL ASSESSMENT: BI-RADS CATEGORY 1: Negative. Procedure Note Ayala Carter MD - 12/04/2023 Mammogram Technique: Bilateral Digital Breast Tomosynthesis, Bilateral C-view 2D Screening mammogram. Views obtained: bilateral craniocaudal and bilateral mediolateral oblique. Computer Aided Detection was performed. Mammogram Findings: The present examination has been compared to a prior imaging study performed at [facility] on 12/01/2022. There are scattered areas of fibroglandular density. There is no suspicious abnormality in either breast. Impression: There is no mammographic evidence of malignancy. Annual screening mammography is recommended. OVERALL FINAL ASSESSMENT: BI-RADS CATEGORY 1: Negative. Beatriz Smith HATCHERY MANAGER IMG MAMMO PROCEDURES Final Result from Last 3 Months or Most Recently Relevant to [place] [id number] [facility] CHOICE PL[facility] HMO/PPO Address: [address] [place] [address] [place] [address] [facility] CHOICE [employer]/PPO Address: [address] [place] [address] [place] [id number] [facility]ICE [facility] HMO/PPO Address: [address] [address] [place] [address] [place] [address] [place] [phone] Advance Directives For more information, please contact: [phone] * Full Code (Latest Code Status on File) Date Activated Date Inactivated Comments 10/04/2021 12:09 PM 10/04/2021 7:45 PM * Full Code Date Activated Date Inactivated Comments 10/04/2021 12:09 PM 10/04/2021 12:09 PM Care Teams Manager Story Relationship Specialty Start Date End Date Bryce Trujillo MD [address] [place] [address] PCP - General Family Medicine 07/14/20 Dora Agarwal MD [address] [place] [id number] Referring Physician Gynecology 10/04/22
--- OUTSIDE RECORDS SUMMARY | 2024-05-29 08:21 | XMS_ITS | Encounter Summary ---
Author Organization [facility] Address [address] [place] [address] Phone Care Team Providers Care Supervisor Area Name Role Phone Camila Weaver Kenna WHIPPLE, CARE SERVICES MANAGER Unavailable Bryce Trujillo MD Primary Care Provider Zackery Ron MD Unavailable [phone] Encounter Details Date Type Department Care Team (Late st Contact Info) Description 05/01/2024 Results Follow-Up [facility] - General Surgery - [place] [address] [address] Zackery Ron MD [address] [address] Social History Tobacco Use Types Packs/Day Years Used Date Smoking Tobacco: Never Smokeless Tobacco: Never Alcohol Use Standard Drinks/Week Comments Not Currently 0 (1 standard drink = 0.6 oz pur e alcohol) rare occassions Sexually Active Control Partners Comments Yes Oral Contraceptive Male Comments No Sex and Gender Information Value Date Recorded Sex Assigned at Not on file Legal Sex Female 8:39 AM DISTRIBUTION CENTER MANAGER Gender Identity Not on file Sexual Orientation Not on file documented as of this encounter Plan of Treatment Not on file documented as of this encounter Visit Diagnoses Not on filedocumented in this encounter Care Teams Supervisor Area Relationship Specialty Start Date End Date Bryce Truj[place] [place] [address] PCP - General Family Medicine 03/15/24 Camila Weaver APRN, CARE SERVICES MANAGER [address] [place] [address] Nurse Practitioner Advanced Practice Nurse 03/06/24 Zackery Ron MD [address] [address] Consulting Physician General Surgery 04/18/24 documented as of this encounter
--- OUTSIDE RECORDS SUMMARY | 2024-05-29 08:21 | XMS_ITS | Clinical Summary ---
Author Organization [address] Address [address] [place] [address] Care Team Providers Care Data Scientist Name Role Phone Bryce Trujillo MD Primary Care Provider [phone] Dora Agarwal MD Unavailable [phone] Allergies No known active allergies Medications Lessina [...] daily Assessment & Plan (04/16/2021 10:54 AM METAL SPRAY OPERATOR): Stable, blood pressure remains elevate well medication [...] related Assessment & Plan (03/26/2021 1:28 PM METAL SPRAY OPERATOR): Stable, patient has had elevated blood pressure [...] 07/19/2021 10/21/2022 Change in bowel habits 07/19/202110/21 Encounters Date Type Department Care Team Description 04/30/2024 Orders Only [facility] [address] [place] [address] Bryce Trujillo MD 03/01/2024 7:44 AM METAL SPRAY OPERATOR - 03/01/2024 11:59 PM METAL SPRAY OPERATOR Hospital Encounter [facility] [address] [place] [address] Abdominal pain Discharge Disposition: Discharge to home or self care from Last 3 Months Immunizations Immunization Administration Dates Next Due Influenza, Unspecified 02/09/2023(Deferr ed: Patient Refused),02/09/2023(Deferred: Patient Refused),10/21/2022(Deferred: Patient Refused),01/08/2022(Deferred: Patient Refused),01/08/2022(Deferred: Patient Refused),06/28/2021(Deferred: Patient Refused),06/28/2021(Deferred: Patient Refused),05/31/2021(Deferred: Patient Refused),03/26/2021(Deferred: Patient Refused),04/10/2020(Deferred: Patient Refused),04/10/2020(Deferred: Patient Refused),04/10/2020(Deferred: Patient Refused),04/10/2020(Deferred: Patient Refused),04/10/2020(Deferred: Patient Refused),04/10/2019(Deferred: Patient Refused) Tdap 07/14/2020 Surgical History Surgery Date Site/Laterality Comments OVARIAN CYST REMOVAL 04/10/1997 - 04/09/1998 OOPHERECTOMY 04/10/1998 - 04/09/1999 Right Family History Medical History Relation Name Comments Hypertension Father Rectal cancer Father's Brother Hypertension Mother Thyroid disease Mother Colon cancer Paternal Grandfather Relation Name Status Comments Father Alive Father's Brother Mother Alive Paternal Grandfather Sister 1 Alive Sister 2 Alive Social History Tobacco Use Types Packs/Day Years Used Date Smoking Tobacco: Never Smokeless Tobacco: Never Tobacco Cessation:Counseling Given: Not Answered [facility] Daily Dealyities Answer Date Recorded In the past 12 months has [employer] or [employer] threatened to shut off services in your [...] week 10/23/2023 How often do you attend [facility] or roman catholic services? More than 4 times per year 10/23/2023 Do you belong to any clubs o r organizations such as shinto groups, unions, fraternal or athletic groups, or [...] staff should administer the PHQ-9) 0 10/23/2023 [facility] - Occupational Stress Questionnaire Answer Date Recorded [...] any time in the past 12 m [facility], were you homeless or living in a intermediate (including now)? 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 Not on file Not on f ile Obstetrics History Para Term AB IAB SAB Ectopic Multiple Livin g Live Births 4 4 Date Outcome GA Total Labor Labor/2nd/3rd Weight Sex Type Anes PTL Pam A1 A5 Name Clin Para Para Para Para Last Filed Vital Signs Vital Sign Reading [...] 02/07/2024 8:11 AM CDT Plan of Treatment Health Maintenance Due Date Last Done Comments Depression Screening 10/22/2024 10/23/2023, 10/11/2023, 11/16/2022, Additional history exists Regular Well Visit/Exam 18-64 10/22/2024 10/23/2023, 10/21/2022, 07/14/2020 Breast Cancer Screening-Mammogram 12/03/2024 12/04/2023, 09/12/2022, 04/01/2022, Additional history exists Cervical Cancer Screening 01/22/2025 01/23/2024 DTaP/Tdap/Td Vaccine (2 - Td or Tdap) 07/14/2030 07/14/2020 Hepatitis B Screening Completed 02/07/2024 Hepatitis C Screening Completed 02/07/2024 HPV Vaccines Aged Out No longer eligi ble based on patient's age to complete this topic Influenza Vaccine Discontinued Pneumococcal vaccine <65 Aged Out No longer eligible based on patient's age to complete this topic Varicella Vaccines Discontinued Procedures Procedure Name Priority Date/Time Associated Diagnosis Comments SCAN - PATHOLOGY 04/30/2024 US ABDOMEN COMPLETE Schedule Routine, Read Routine (OP Routine) 03/01/2024 8:39 AM METAL SPRAY OPERATOR Abdominal pain HEPATITIS C ANTIBODY Routine 02/07/2024 [...] * US Abdomen Complete (03/01/2024 8:39 AM METAL SPRAY OPERATOR) Anatomical Region Laterality Modality Abdomen N/A Ultrasound 03/05/2024 10:4 6 PM METAL SPRAY OPERATOR Narrative 03/05/2024 10:47 PM METAL SPRAY OPERATOR EXAM DESCRIPTION: US ABDOMEN COMPLETE REASON FOR [...] thickening or pericholecystic fluid. No positive sonographic Alden sign reported. BILIARY: There is no intrahepatic [...] Jeffrey Miranda M.D. KT: DONIS Report ID: [id number] Reading Location: [id number] Procedure Note Jeffrey Miranda MD - 03/05/2024 [...] wall thickening or pericholecystic fluid. No positivesonographic Alden sign reported. BILIARY: There is no intrahepatic [...] Electronically signed by Jeffrey Miranda M.D. KT: KT Report ID: [id number] Reading Location: [place] [address] us Bryce Trujillo MD IMG US PROCEDURES Final R esult * Hepatitis [...] last revised on 2019. Testing performed by: [facility], [address] [place] [address]., [id number] Blood 02/07/2024 8:52 AM CDT 02/07/2024 3:33 PM CDT us Bryce Trujillo MD LAB MICROBIOLOGY - GENERA L ORDERABLES Final Result [facility] [place] [address] [facility] Department [place] [address] * Screening Mammogram Bilateral W Negro (12/04/2023 10:47 AM CDT) Anatomical Region Laterality Modality Breast Bilateral Mammography Narrative 12/04/2023 3:30 PM CDT Mammogram Technique: Bilateral Digital Breast Tomosynthesis, Bilateral C-view 2D Screening mammogram. Views obtained: bilateral craniocaudal and bilateral mediolateral oblique. Computer Aided Detection was performed. Mammogram Findings: The present examination has been compared to a prior imaging study performed at [facility] on 12/01/2022. There are scattered areas [...] to a prior imaging study performed at [facility] on 12/01/2022. There are scattered areas of fibroglandular density. There is no suspicious abnormality in either breast. Impression: There is no mammographic evidence of malignancy. Annual screening mammography is recommended. OVERALL FINAL ASSESSMENT: BI-RADS CATEGORY 1: Negative. Beatriz Smith NP IMG MAMMO PROCEDURES Final Result from Last 3 Months or Most Recently Relevant to Health [place] [address] [facility] CHOICE PLUS [facility]/PPO Address: [address] [place] [address] [place] [address] [facility] CHO[facility] H[facility]/PPO Address: [address] [place] [address] [place] [address] [facility] CHOICE [facility] H[facility]/PPO Address: [address] [address] [place] [address] [place] [address] Advance Directives For more information, please contact: [phone] * Full Code (Latest Code Status on File) Date Activated Date Inactivated Comments 10/04/2021 12:09 PM 10/04/2021 7:45 PM * Full Code Date Activated Date Inactivated Comments 10/04/2021 12:09 PM 10/04/2021 12:09 PM Care Teams Data Scientist Relationship Specialty Start Date End Date Bryce Trujillo MD [address] [place] [address] PCP - General Family Medicine 07/14/20 Dora Agarwal MD [address] [address] Referring Physician Gynecology 10/04/22
--- OUTSIDE RECORDS SUMMARY | 2024-05-29 08:21 | XMS_ITS | Clinical Summary ---
Author Organization [facility] Address [address] [place] [address] Phone Care Team Providers Care Assembly Loader Name Role Phone Camila Weaver APRN, FLUID PUMP OPERATOR Unavailable Bryce Trujillo MD Primary Care Provider [phone] Zackery Ron MD Unavailable Allergies No known active allergies Medications LESSINA-28 0.1-20 MG-MCG Tablet Take 1 Tablet by mouth daily. 01/23/20 24 Active lisinopril (PRINIVIL, ZESTRIL) 20 MG Tablet Take 20 mg by mouth daily. 10/23/19 24 025 Active Multiple Vitamin (MULTI-VITAMIN PO) Take by mouth. Active Probiotic Product (PROBIOTIC DAILY PO) Take by mouth. Active HYDROcodone-acetami nophen (NORCO) 5-325 MG TabletIndications:S /P laparoscopic cholecystectomy Take 1-2 Tablets by mouth every 8 hours as needed for Moderate or more severe pain. 12 Tablet 05/07/19 25 Active HYDROcodone-acetami nophen (NORCO) 5-325 MG TabletIndications:S /P laparoscopic cholecystectomy Take 1-2 Tablets by mouth every 8 hours as needed for Moderate or more severe pain. 12 Tablet 04/30/19 25 025 Discontin ued(Reord er) Active Problems No known active problems Encounters Date Type Department Care Team Description 05/07/2024 Telephone [facility] - [place] [address] [place] [address] [place] [address] Zackery Ron MD 05/01/2024 Results Follow-Up [facility] Surgery - [place] [address] [facility] [place] [address] Zackery Ron MD 04/30/2024 10:27 AM DATA CONVERSION DEVELOPER [facility]esthesia [facility] [address] [place] [address] Zak Hayes MD Tucker, Nora Dias, Student 04/30/2024 10:10 AM DATA CONVERSION DEVELOPER - 04/30/2024 12:10 PM DATA CONVERSION DEVELOPER [facility] [address] [facility] [place] [address] Zackery Ron MD LAPAROSCOPIC CHOLECYSTECTOMY WITH INTRAOPERATIVE INDOCYANINE GREEN CHOLANGIOGRAMS 04/30/2024 8:06 AM DATA CONVERSION DEVELOPER - 04/30/2024 2:00 PM DATA CONVERSION DEVELOPER [facility] Preop[facility]Pac[facility] [address] [place] [address] Zackery Ron MD Discharge Disposition: Discharged to home or Selfcare 04/30/2024 Travel 04/24/2024 9:30 AM DATA CONVERSION DEVELOPER Office Visit [facility] [place] [address] [place] [address] Camila Weaver APRN, FLUID PUMP OPERATOR Zackery Ron MD Biliary dyskinesia (Primary Dx); Abnormal biliary HIDA scan; Decreased appetite; Abdominal bloating; Lower abdominal pain Discharge Disposition: Discharged to home or Selfcare 04/24/2024 Travel 04/23/2024 Travel 04/16/2024 9:20 AM DATA CONVERSION DEVELOPER - 04/16/2024 11:59 PM DATA CONVERSION DEVELOPER [facility] Nuclear Medicine 1 [place] [address] Camila Waever APRN, CNP Discharge Disposition: Discharged to home or Selfcare 04/16/2024 Results Follow-Up [facility] [address] [place] [phone] Camila Weaver APRN, CNP Abnormal biliary HIDA scan (Primary Dx); Decreased appetite; Abdominal bloating; Lower abdominal pain 04/16/2024 Travel 03/18/2024 Transcribe Orders [facility] [address] [place] [address] Bryce Trujillo MD Bloating (Primary Dx) 03/13/2024 Telephone [facility] [address] [place] [address] Camila Weaver APRN, CNP 03/04/2024 8:30 AM DATA CONVERSION DEVELOPER Office Visit [facility] [address] [place] [address] Camila Weaver APRN, CNP Lower abdominal pain (Primary Dx); Abdominal bloating; Decreased appetite Discharge Disposition: Discharged to home or Selfcare 03/04/2024 Travel from Last 3 Months Family History Medical History Relation Name Comments No Known Problems Daughter 1 No Known Problems Daughter 2 No Known Problems Daughter 3 Hypertension Father No Known Problems Maternal Grandfather No Known Problems Maternal Grandmother Hypertension Mother Lung Cancer Paternal Grandfather Colon Cancer Paternal Grandmother No Known Problems Sister 1 No Known Problems Sister 2 No Known Problems Son Relation Name Status Comments Daughter 1 Alive Daughter 2 Alive Daughter 3 Alive Father Alive Maternal Grandfather Maternal Grandmother Mother Alive Paternal Grandfather Paternal Grandmother Sister 1 Alive Sister 2 Alive Son Alive Social History Tobacco Use Types Packs/Day [...] on file Legal Sex Female 8:39 AM DATA CONVERSION DEVELOPER Gender Identity Not on file Sexual Orientation Not on file Last Filed Vital Signs Vital Sign Reading Time Taken Comments Blood Pressure 127/75 04/30/2024 1:12 PM DATA CONVERSION DEVELOPER Pulse 59 04/30/2024 1:12 PM DATA CONVERSION DEVELOPER Temperature 36.9 C (98.4 F) 04/30/2024 1:12 PM DATA CONVERSION DEVELOPER Respiratory Rate 16 04/30/2024 1:12 PM DATA CONVERSION DEVELOPER Oxygen Saturation 100% 04/30/2024 1:12 PM DATA CONVERSION DEVELOPER Inhaled Oxygen Concentration - - Weight 63 kg (138 lb 12.8 oz) 04/30/2024 8:25 AM DATA CONVERSION DEVELOPER Height 160 cm (5' 3 ) 04/30/2024 8:25 AM DATA CONVERSION DEVELOPER Body Mass Index 24.59 04/30/2024 8:25 AM DATA CONVERSION DEVELOPER Plan of Treatment Health Maintenance Due Date Last Done Comments Hepatitis C Virus (HCV) Screening 1980 Hepatitis B Immunization (1 of 3 - 19+ 3-dose series) 06/25/1998 Pap Smear 06/25/2000 Cervical Cancer Screening (CCS) 06/25/2009 HPV/Cotest 06/25/2009 Influenza Immunization (#1) 2023 SARS-COV-2 Immunization ( season) 2023 11/26/2020 Mammogram 12/03/2024 12/04/2023 Respiratory Syncytial Virus (RSV) Immunization (Adult) (1 - 1-dose 75+ series) 06/25/2054 TdaP Immunization Completed 07/14/2020 Discussion re Starting/Frequ ency of Mammograms Completed 12/04/2023 Meningococcal Immunization (ACWY) Aged Out No longer eligible based on patient's age to complete this topic Pneumococcal Immunization Combined Aged Out No longer eligible based on patient's age to complete this topic Rotavirus Immunization Aged Out No lo nger eligible based on patient's age to complete this topic Procedures Procedure Name Priority Date/Time Associated Diagnosis Comments PATHOLOGY SURGICAL Routine 04/30/2024 11 :09 AM DATA CONVERSION DEVELOPER INTUBATION Routine 04/30/2024 10:35 AM DATA CONVERSION DEVELOPER LAP,CHOLECYSTECTOMY/ GRAPH 04/30/2024 10:07 AM DATA CONVERSION DEVELOPER BILIARY DYSKINESIA Special Needs 5'3 140LBS HTN, ORAL CONTRACEPT., NEEDS PREG TEST IN DS LAP,CHOLECYSTECTOMY 04/30/2024 1 0:07 AM DATA CONVERSION DEVELOPER BILIARY DYSKINESIA Special Needs 5'3 140LBS HTN, ORAL CONTRACEPT., NEEDS PREG TEST IN DS POCT URINE HCG () Routine 04/30/2024 8:15 AM DATA CONVERSION DEVELOPER NM HEPATOBILIARY WITH PHARM Routine 04/16/2024 11:18 AM DATA CONVERSION DEVELOPER Abdominal bloating Bloating UR TEST QUAL Routine 04/16/2024 9:14 AM DATA CONVERSION DEVELOPER Bloating from Last 3 Months Results * Pathology Surgical (04/30/2024 11:09 AM DATA CONVERSION DEVELOPER) Case Report Surgical Pathology Report Case: [id number] Authorizing Provider: Zackery Ron, Collected: 04/30/2024 11:09 AM Ordering Location: [facility] Received: 04/30/2024 11:50 AM [facility] Main OR Pathologist: Kaden Faulkner MD PhD Specimen: Gallbladder, GALLBLADDER 05/01/2024 9:49 AM DATA CONVERSION DEVELOPER [facility] FINAL DIAGNOSIS Gallbladder, cholecystectomy: - Chronic cholecystitis 05/01/2024 9:49 AM DATA CONVERSION DEVELOPER [facility] at 0949 DATA CONVERSION DEVELOPER Pre-Operative Diagnosis BILIARY DYSKINESIA 05/01/2024 9:49 AM DATA CONVERSION DEVELOPER [facility] Gross Description A. GALLBLADDER The specimen presents in a single formalin container for gross and microscopic examination, labeled with the patient's name, Aide Chu, and designated as gallbladder. The specimen consists of a single intact fluctuant gallbladder measuring 8 cm in length and has a maximum fundal diameter of up to 3 cm. The serosal surfaces are smooth and glistening and violaceous in color. The cystic duct has been clamped closed. Upon opening the gallbladder, there is a fair amount of yellow-green viscous bile. There are no stones identified in the gallbladder or in the container. The mucosal surfaces are dark red and unremarkable. The gallbladder wall measures up to 1 mm in greatest thickness. Buttonhole Facer sample submitted in cassette A1. Total time of fixation is 10 hours, 37 minutes. KS/sb 05/01/2024 9:49 AM DATA CONVERSION DEVELOPER [facility] Microscopic Description Microscopic examination was performed which supports the final diagnosis. All control tissues stained appropriately. 05/01/2024 9:49 AM DATA CONVERSION DEVELOPER [facility] Tissue GALLBLADDER STRUCTURE / Unknown 04/30/2024 11:09 AM DATA CONVERSION DEVELOPER 04/30/2024 11:50 AM DATA CONVERSION DEVELOPER us Zackery Ron MD PATHOLOGY/CYTOLOGY OR DERABLES Final Result [facility] [address] [place] [address] * INTUBATION (04/30/2024 10:35 AM DATA CONVERSION DEVELOPER) Narrative Zak Hayes MD - 04/30/2024 10:35 AM DATA CONVERSION DEVELOPER Zak Hayes MD 04/30/2024 10:51 AM Intubation Location: OR Urgency: Elective Staffing Performed: resident/POSTPARTUM NURSE Other anesthesia staff: Nora Magdaleno Student Performed by: Zak Hayes MD Authorized by: Zak Hayes MD Overall Difficulty: Easy Asked by patient's primary providers to assist with establishing secure airway. Consent for Airway (if performed for an anesthetic, see related documentation for consents) Patient identity confirmed: verbally with patient and arm band Consent: No emergent situation. Verbal consent obtained. Written consent obtained. Risks and benefits: risks, benefits and alternatives were discussed Consent given by: Patient Indications: Airway protection Spontaneous ventilation: present Level of Consciousness: Awake Preoxygenated: yes Procedure Details Patient Position: Sniffing Ease of mask ventilation: easy Final Airway Details Intubation Site: oral Tube Type: Standard Cuffed: yes Intubation Method: Direct laryngoscopy Cricoid Pressure: No Rapid Sequence: No Blade Used: MAC Blade size: #3 Stylet Used: Yes Laryngeal View: Grade I Depth: 21 Atraumatic: Atraumatic intubation After confirmation of secured airway, patient care returned to primary providers. us Zak Hayes MD ANESTHESIA ORDERABLES Final R esult * POCT Urine HCG () (04/30/2024 8:15 AM DATA CONVERSION DEVELOPER) POC URINE Negative POC URINE CONTROL Furnace [place] Urine 04/30/2024 8:15 AM DATA CONVERSION DEVELOPER Zackery Ron MD POINT OF CARE TESTING (MANUAL) Final Result * NM HEPATOBILIARY WITH PHARM (04/16/2024 11:18 AM DATA CONVERSION DEVELOPER) Anatomical Region Laterality Modality Abdomen N/A Nuclear Medicine 04/16/2024 11:3 7 AM DATA CONVERSION DEVELOPER Impressions 04/16/2024 11:45 AM DATA CONVERSION DEVELOPER IMPRESSION: 1. No evidence of cystic duct obstruction. 2. Low gallbladder ejection fraction, differential diagnosis includes biliary dyskinesia and chronic cholecystitis. Narrative 04/16/2024 11:45 AM DATA CONVERSION DEVELOPER EXAM DESCRIPTION: NM HEPATOBILIARY WITH PHARM REASON FOR STUDY: Gaseous abdominal distension with bloating. RADIOPHARMACEUTICAL: 5.3 mCi Tc-99m mebrofenin via a right antecubital IV site and 8 oz Ensure Plus or equivalent p.o. COMPARISON: Complete abdominal ultrasound 03/01/2024. TECHNIQUE: Following the intravenous administration of the radiopharmaceutical, sequential abdominal images were obtained. A region of interest was drawn around the gallbladder with an ejection fraction calculated. FINDINGS: There is prompt, homogenous tracer localization throughout the liver. There is normal visualization of the intrahepatic ducts, common bile duct, and gallbladder. There is normal biliary to bowel transit. Following the oral administration of Ensure Plus, the gallbladder ejection fraction was calculated and was 22 % (normal: greater than 40%, equivocal: 30-40%, and abnormal: less than 30%). There is some mild enterogastric reflux. THIS IS AN ELECTRONICALLY VERIFIED FINAL REPORT 04/16/2024 11:37 AM - Electronically signed by Jorge Calderon M.D. CH: ERIC Report ID: [id number] Reading Location: [id number] Procedure Note Jorge Calderon Jr., MD - 04/16/2024 EXAM DESCRIPTION: NM HEPATOBILIARY WITH PHARM REASON FOR STUDY: Gaseous abdominal distension with bloating. RADIOPHARMACEUTICAL: 5.3 mCi Tc-99m mebrofenin via a right antecubital IV site and 8 oz Ensure Plus or equivalent p.o. COMPARISON: Complete abdominal ultrasound 03/01/2024. TECHNIQUE: Following the intravenous administration of the radiopharmaceutical, sequential abdominal images were obtained. A region of interest was drawn around the gallbladder with an ejection fraction calculated. FINDINGS: There is prompt, homogenous tracer localization throughout the liver. There is normal visualization of the intrahepatic ducts, common bile duct, and gallbladder. There is normal biliary to bowel transit. Following the oral administration of Ensure Plus, the gallbladder ejection fraction was calculated and was 22 % (normal: greater than 40%, equivocal: 30-40%, and abnormal: less than 30%). There is some mild enterogastric reflux. THIS IS AN ELECTRONICALLY VERIFIED FINAL REPORT 04/16/2024 11:37 AM - Electronically signed by Jorge Calderon M.D. CH: Report ID: [id number] Reading Location: [id number] IMPRESSION: 1. No evidence of cystic duct obstruction. 2. Low gallbladder ejection fraction, differential diagnosis includes biliary dyskinesia and chronic cholecystitis. Camila Weaver TILTROTOR CREW CHIEF, FLUID PUMP OPERATOR IMG NM ORDERABLES Final Result * UR TEST QUAL (04/16/2024 9:14 AM DATA CONVERSION DEVELOPER) PREG TEST,MONOCLONA L Negative 04/16/2024 9:22 AM DATA CONVERSION DEVELOPER [facility] Urine Non-Phlebotomy Collection / Unknown 04/16/2024 9:14 AM DATA CONVERSION DEVELOPER 04/16/2024 9:22 AM DATA CONVERSION DEVELOPER Bryce Trujillo MD URINE ORDERABLES Final Result [facility] [address] [facility] [place] [address] from Last 3 Months Insurance [facility] Care Teams Assembly Loader Relationship Specialty Start Date End Date Bryce Trujillo MD [address] [place] [address] PCP - General Family Medicine 03/15/24 Camila Weaver APRN, FLUID PUMP OPERATOR [address] [place] [address] Nurse Practitioner Advanced Practice Nurse 03/06/24 Zackery Ron MD [address] [facility] [address] [address] Consulting Physician General Surgery 04/18/24
--- OUTSIDE RECORDS SUMMARY | 2024-05-29 08:21 | XMS_ITS | Encounter Summary ---
Author Organization [facility] Healthcare Address [address] [place] [address] Care Team Providers Care Time Study Clerk Name Role Phone Unavailable Primary Care Provider Unavailabl e Reason for Visit * Diagnostic Imaging (Routine) - Closed Specialty Diagnoses / Procedures Referred By Shayy garza Referred To Contact Procedures Breast Imaging Screening Outside Reference Bhargav Peterson NP Phone: tel: fax: Referral ID Status Reason Start Date Expiration Date Visits Re quested Visits Authorized [id number] Closed 10/20/2022 11/19/2023 1 1 Encounter Details Date Type Department Care Team (Late st Contact Info) Description 11/26/2019 Hospital Encounter [facility] [address] [place] [id number] Social History Tobacco Use Types Packs/Day Years Used Date Smoking Tobacco: Never Smokeless Tobacco: Never [facility] Utilities Answer Date Recorded In the past 12 months has e electric, gas, oil, or water company threatened to shut off services in your [...] 10/23/2023 How often do you attend chur or yarsani services? More than 4 times per year 10/23/2023 Do you belong to any clubs o r organizations such as moravian groups, unions, fraternal or athletic groups, or [...] staff should administer the PHQ-9) 0 10/23/2023 [facility] [place] [facility] Occupat ional [facility] - Occupational Stress [...] any time in the past 12 m [facility], were you homeless or living in a [facility] (including now)? 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 No 10/23/2023 8:13 AM Teetee Colmenares LCSW Within the last year, have you been afraid of your partner or ex-partner? No 10/23/2023 8:13 AM EARNESTT Jun Walls LCSW Within the last year, have you been raped or forced to have any kind of sexual activity by your partner or ex-partner? No 10/23/2023 8:13 AM EARNESTT Teetee Walls LCSW Within the last year, have you been kicked, hit, slapped, or otherwise physically hurt by your partner or ex-partner? No 10/23/2023 8:13 AM Jun Colmenares LCSW * Question Answer Date of Assessment Author Q1: How often do you have a drink containing alcohol? 2-4 times a month 10/23/2023 8:13 AM Teetee Colmenares LCSW Q2: How many drinks containing alcohol do you have on a typical day when you are drinking? 1 or 2 10/23/2023 8:13 AM Teetee Colmenares LCSW Q3: How often do you have six or more drinks on one occasion? Never 10/23/2023 8:13 AM Teetee Colmenares LCSW documented as of this encounter Plan of Treatment Not on file documented as of this encounter Procedures Procedure Name Priority Date/Time Associated Diagnosis Comments BREAST IMAGING MG SCREENING OUTSIDE REFERENCE Routine 11/26/2019 12:00 AM CDT documented in this encounter Results * Breast Imaging Screening Outside Reference (11/26/2019 12:00 AM CDT) Impressions RAD_M[facility]MO[facility] - 10/20/2022 8:55 AM CDT These images are for Reference purposes only and have not been reviewed by [facility]. There will be no report generated by a [facility] Radiologist. Narrative [facility] - 10/20/2022 8:55 AM CDT EXAMINATION: Images For Reference Purposes Only us Bhargav Peterson NP IMG MAMMO PROCEDURES Final Result [facility] documented in this encounter Visit Diagnoses Not on filedocumented in this encounter Additional Health Concerns Infection Onset Date Last Indicated Resolved Time COVID: Suspected 11/07/2020 11/07/2020 11/07/2020 2:33 PM CDT COVID19 11/07/2020 11/07/2020 11/21/2020 3:05 AM CDT documented as of this encounter
--- NOTE | 2024-05-29 08:35 | ED.DENTAL ---
HPI - Dental/Oral General Chief complaint: Dental/Oral Stated complaint: left side of jaw swollen/headache Time Seen by Provider: 05/29/24 08:31 Mode of arrival: ambulatory Limitations: no limitations History of Present Illness HPI Narrative: 43-year-old female presents with concern for swelling and pain to her left jaw. She reports symptoms started yesterday. She denies runny nose, stuffy nose, sore throat, fever, cough. She denies trouble swelling. Reports the area is tender and has gotten more swollen since yesterday. She denies any injury to her teeth. Reports she had her teeth cleaned 1 month ago. MD Complaint: tooth pain Related Data Home Medications ?Medication ?Instructions ?Recorded ?Confirmed ?Last Taken ?Type lisinopril 20 mg tablet mg 09/22/22 09/22/22 Unknown History levonorgestrel-ethinyl estradiol tablet 05/29/24 Unknown History 0.1 mg-20 mcg tablet (Lessina) Allergies Allergy/AdvReac Type Severity Reaction Status Date / Time No Known Allergies Allergy Unknown Verified 05/29/24 08:26 Review of Systems Review of Systems: CONSTITUTIONAL: Denies malaise, chills, sweats, or fever. EYES: Denies visual changes ENT: Denies rhinorrhea, congestion, sinus pain, otalgia or sore throat. Reports left jaw swelling and pain CARDIOVASCULAR: Denies chest pain, palpitations RESPIRATORY: Denies cough or dyspnea. SKIN: Denies rash or itching. MUSCULOSKELETAL: Denies myalgia. NEUROLOGIC: Denies numbness, weakness, or headache. All systems reviewed & are unremarkable except as noted in HPI and below [facility] Past Medical History Medical History Hypertension Surgical History Surgical History Hx of removal of ovary Family History Family History Grandparent Carcinoma of colon Family history of lung cancer Social History Social History Smoking status: Never smoker Alcohol intake: never Comments At time of signature, agree with nursing past medical, surgical, social and family history. There is no relevant family history pertinent to the presenting complaint Exam Narrative: GENERAL: Well-appearing, well-nourished, and in no acute distress. HEAD: Normocephalic, atraumatic. EYES: PERRLA, sclera clear ENT: Nares clear, turbinates pink, no rhinorrhea or epistaxis. Mucous membranes moist. TM pearly cedillo with sharp light reflex bilaterally; no tragal tenderness. Oropharynx without erythema or lesions. Tonsils not enlarged and without exudate. No missing teeth, broken teeth, caries. Left jaw swelling and tenderness noted NECK: Supple. No lymphadenopathy. CHEST: No respiratory distress. Speaks in full sentences. HEART: Regular rate and rhythm. SKIN: Warm, dry, no visible rash. NEURO: Alert and oriented x3. PSYCH: Normal mood and affect Course Course Emergency Course: Patient is aware of diagnosis, understands and agrees to treatment plan. Anticipatory guidance given. Patient agrees to follow-up as directed and is aware of reasons to seek care at the emergency department. Portions of this record may have been created with voice recognition software Level of Care: Express Care Visit Vital Signs Vital signs: Vital Signs Temperature 98.5 F 05/29/24 08:20 Pulse Rate 80 05/29/24 08:20 Respiratory Rate 16 05/29/24 08:20 Blood Pressure 145/96 H 05/29/24 08:20 Pulse Oximetry 100 05/29/24 08:20 Oxygen Delivery Room Air 05/29/24 08:20 Temperature 98.5 F 05/29/24 08:20 Pulse Rate 80 05/29/24 08:20 Respiratory Rate 16 05/29/24 08:20 Blood Pressure 145/96 H 05/29/24 08:20 Pulse Oximetry 100 05/29/24 08:20 Oxygen Delivery Room Air 05/29/24 08:20 Reviewed. MDM - Dental/Oral MDM Narrative Medical decision making narrative: I evaluated this in the express care. History is obtained from patient who is an independent historian and physical exam was performed.? Available medical records were reviewed. ? Exam findings and relevant testing show no acute concerns or changes; patient is non-toxic appearing and is in no distress. Patients pain and complaint coupled with physical findings are consistant with dentalgia. There are no focal signs of space occupying lesions that are compromising to the airway; no dysphagia, odynophagia, dysphonia, or dyspnea. No uvular deviation or soft palate edema. Patient is non-toxic appearing. The floor of the mouth is soft with no signs of Eddie's Angina; no induration below mandible, no neck pain. Patient is without trismus or drooling and able to swallow secretions. Patient is felt appropriate for discharge home with dental follow up. ? Differential diagnosis and treatment plan were discussed with the patient. Patient agrees with discussion and after shared medical decision making agrees with plan of care. All questions were answered to the patient's satisfaction. Patient is appropriate for outpatient treatment and follow-up. Differential Diagnosis Differential diagnosis: Likely gingival abscess, dental caries, toothache, dental abscess, fracture of tooth and aphthous ulcer Critical Care Time Critical Care Time Critical Care Time: No Discharge Plan Discharge Clinical Impression: Dental abscess Patient Disposition: Home, Self-Care Condition: Stable Instructions: Antibiotic Form, Dental Abscess (ED) Additional Instructions: Take antibiotic as directed Avoid temperature extremes May apply warm compress to the face Gentle brushing and flossing Take 2 extra strength Tylenol, 4 ibuprofen, 80 mg of caffeine at same time. You can do this every 6 hours. Do not do this for more than 2 - 3 days. You can substitute 25 mg Benadryl at nighttime for caffeine to help you sleep. Do this for no more than 3 days. Follow-up with the dentist as soon as possible Patient Language: [place] Prescriptions: New clindamycin HCl 300 mg capsule 300 mg PO Q8H 7 Days Qty: 21 0RF No Action lisinopril 20 mg tablet levonorgestrel-ethinyl estrad [Lessina] 0.1-20 mg-mcg tablet nitroglycerin 0.3 mg tablet, sublingual 0.3 mg sublingual Q5-15M PRN (Reason: chest pain) Qty: 10 0RF Rx Instructions: do not exceed 3 doses per episode Follow-up/Referrals: Ronnie,MD Bryce [Primary Care Provider] - Time of Disposition: 08:40
== END 2024-05-29 08:42 | disposition home or self-care (01) ==
PROVIDERS: Emergency Provider Nurse Practitioner; PCP Hospitalist
DX: K04.7 Periapical abscess without sinus (principal); I10 Essential (primary) hypertension
CPT/HCPCS: 99213; G0463

== ENCOUNTER 2025-01-20 10:25 | Outpatient (CLI) | payer OTHER, SELFPAY ==
--- NOTE | ~2025-01-20 | US_ITS ---
EXAMINATION: US pelvic complete w TV DATE: 01/20/2025 10:55 INDICATION: Abnormal uterine bleeding. TECHNIQUE: Multiple transabdominal and transvaginal sonographic images of the pelvis were obtained. COMPARISON: Ultrasound pelvis 01/29/2024 FINDINGS: TRANSABDOMINAL ULTRASOUND: The uterus measures 9.7 x 4.3 x 5.2 cm. There is no free fluid in the pelvis. TRANSVAGINAL ULTRASOUND: The endometrial complex measures 6 mm in thickness. The right ovary is absent. The left ovary measures 2.6 x 1.1 x 2.0 cm. There is normal vascular flow in left ovary. IMPRESSION: 1. Normal uterus and left ovary. 2. Absent right ovary. Reviewed, dictated and finalized at location E.
== END 2025-01-20 10:26 | disposition home or self-care (01) ==
LOC: MICIMG 10:26
PROVIDERS: PCP Hospitalist
DX: N93.9 Abnormal uterine and vaginal bleeding, unspecified (principal)
CPT/HCPCS: 76830; 76856